=== PATIENT | female | born 1950 | race Caucasian/White ===

== ENCOUNTER 2019-11-02 10:52 | Day surgery (SDC) | payer MEDICARE, OTHER ==
[~2019-11-02 10:52] MED LIST: Sodium Chloride 0.9% 10 ML Syringe FLUSH PRN
[2019-11-02] MEDS ORDERED: Propofol 200 MG/20 ML SDV ONE ×2 (11:09→12:43)
[2019-11-02] MEDS ORDERED: fentaNYL 100 MCG/2 ML SDV ONE (11:09)
[2019-11-02] MEDS: Lactated Ringers 1,000 ML IV SCH (11:26)
--- NOTE | 2019-11-02 14:14 | OR ---
PRE-OPERATIVE DIAGNOSIS: Positive Cologuard. This is the patient's first colonoscopy. POST-OPERATIVE DIAGNOSES: 1. Two medium-sized polyps removed both using hot snare. a. A 6-mm cecal polyp. b. A 10-mm pedunculated polyp at the entry to the cecum. The stalk was quite short. 2. Normal distal ileum. PROCEDURE: Colonoscopy with polypectomy x2 using hot snare. ANESTHESIA: Monitored anesthesia care. BOWEL PREP: Fair in the right colon and good otherwise. Justina is 69-year-old female, who was brought to the endoscopy suite after discussing risks and benefits of the procedure. Informed consent was obtained for conscious sedation and colonoscopy with or without biopsy and/or polypectomy. We also discussed possibility of missed lesions. Pre-procedure exam was unremarkable. IV, oxygen, and monitors were placed. The patient was placed in the left lateral decubitus position. Sedation was administered and a digital rectal exam was performed and unremarkable. Colonoscope was passed into the rectum and slowly advanced all the way to the cecum. Cecum was viewed and photographed. Ileocecal valve was intubated and distal ileum was normal in appearance. Within the cecum, there was noted to be a 6-mm sessile polyp, removed using hot snare. Just outside of the cecum at the entry to the cecum, there was a 10-mm pedunculated polyp with a very short stalk. This was removed using hot snare. To retrieve this polyp, scope had to be completely removed and then insert again all the way back to the cecum. The colonoscope was slowly withdrawn and the mucosa was closely observed in a direct circumferential manner. The ascending colon was otherwise unremarkable. The transverse colon was unremarkable. The descending colon was unremarkable. The sigmoid colon was unremarkable. Retroflexion was performed and rectal mucosa was unremarkable. Scope was removed. The patient tolerated the procedure well. The patient was monitored until that baseline status. Discharge instructions were reviewed and the patient was discharged in good condition. COMPLICATIONS: None. TOTAL TIME: 36 minutes. ESTIMATED BLOOD LOSS: Less than 1 mL. RECOMMENDATIONS/FOLLOW-UP: We will await results of path report to determine ideal followup interval. I will also have the patient hold her aspirin for a week just to limit any chance of bleeding from the polypectomy sites. I would like to kindly thank Alondra Cain for this referral. DMB: 11/02/2019 13:17:54 MODL: 11/02/2019 14:06:51 /[id number]
== END 2019-11-02 14:15 | disposition home or self-care (01) ==
LOC: MERGE 10:52 → VM.SDS 10:52
PROVIDERS: ATTEND Family Medicine
DX: D12.0 Benign neoplasm of cecum (principal)
CPT/HCPCS: 45384; 45385; 88305; J2704; J3010; J7120

== ENCOUNTER 2023-11-05 06:34 | Day surgery (SDC) | payer MEDICARE, OTHER ==
[~2023-11-05 06:34] MED LIST changes: +Lactated Ringers 1,000 ML IV SCH; -Sodium Chloride 0.9% 10 ML Syringe FLUSH PRN
[2023-11-05] MEDS ORDERED: Lactated Ringers 1,000 ML IV SCH (07:00)
[2023-11-05] MEDS ORDERED: fentaNYL 100 MCG/2 ML SDV ONE (07:45)
[2023-11-05] MEDS ORDERED: Propofol 200 MG/20 ML SDV ONE (07:46)
== END 2023-11-05 09:09 | disposition home or self-care (01) ==
LOC: VM.SDS 06:34
PROVIDERS: ATTEND Student in an Organized Health Care Education/Training Program
DX: Z12.11 Encounter for screening for malignant neoplasm of colon (principal); D12.3 Benign neoplasm of transverse colon; D12.0 Benign neoplasm of cecum; I10 Essential (primary) hypertension; E78.2 Mixed hyperlipidemia; Z86.010 Personal history of colon polyps; K21.9 Gastro-esophageal reflux disease without esophagitis; Z79.899 Other long term (current) drug therapy
CPT/HCPCS: 00811; 88305; J2704; J3010

== ENCOUNTER 2024-05-29 07:25 | Emergency (ER) | payer MEDICARE ==
[2024-05-29 07:43] LABS: BASOPHILS PERCENT AUTO 0.4 % (0.2-1.2); EOSINOPHILS ABSOLUTE AUTO 0.3 x10^3/uL (0.0-0.5); EOSINOPHILS PERCENT AUTO 4.8 % (0.0-4.0); HEMATOCRIT 45.1 % (33.0-47.0); HEMOGLOBIN 15.7 g/dL (12.0-16.0); IMMATURE GRAN ABSOLUTE AUTO 0.01 x10^3/uL (0.00-0.07); MEAN CORPUSCULAR HEMOGLOBIN 31.2 pg (26.0-32.0); MEAN CORPUSCULAR HGB CONC 34.8 g/dL (32.0-36.0); MEAN CORPUSCULAR VOLUME 89.5 fL (78.0-93.0); MONOCYTES ABSOLUTE AUTO 0.6 x10^3/uL (0.0-0.8); MONOCYTES PERCENT AUTO 10.2 % (2.0-11.0); NEUTROPHILS ABSOLUTE AUTO 2.6 x10^3/uL (1.8-7.7); NEUTROPHILS PERCENT AUTO 48.4 % (50.0-80.0); PLATELET COUNT,PLT 194 x10^3/uL (130-400); RED BLOOD CELL COUNT 5.04 x10^6/uL (4.00-5.50); WHITE BLOOD CELL COUNT,WBC 5.4 x10^3/uL (4.0-10.0)
[2024-05-29 07:51] LABS: CALCIUM 9.1 mg/dL (8.5-10.1); CREATININE 0.8 mg/dL (0.55-1.02); EST CRCL DRUG DOSING (CG) 52.58 mL/min; POTASSIUM,K 4.1 mmol/L (3.5-5.1)
[2024-05-29 07:53] LABS: ANION GAP 14.1 mmol/L (5-15)
[2024-05-29] MEDS: Bisoprolol 5 MG Tab PO ONE (08:28)
[2024-05-29] MEDS: Aluminum Hydroxide/Magnesium Hydroxide/Simethicone Susp 30 ML Cup PO ONE (11:19)
[2024-05-29] MEDS: Famotidine 20 MG/2 ML SDV IVPUSH ONE (13:01)
== END 2024-05-29 12:30 | disposition short-term general hospital (02) ==
LOC: VM.ED 07:25
DX: I21.4 Non-ST elevation (NSTEMI) myocardial infarction (principal); I10 Essential (primary) hypertension; E78.00 Pure hypercholesterolemia, unspecified; E66.9 Obesity, unspecified; Z88.5 Allergy status to narcotic agent; Z88.8 Allergy status to other drugs, medicaments and biological substances; Z79.899 Other long term (current) drug therapy; Z90.49 Acquired absence of other specified parts of digestive tract; Z68.35 Body mass index [BMI] 35.0-35.9, adult
CPT/HCPCS: 36415; 80048; 83735; 84484; 85025; 99285; A9270; J3490; 93010; 99284